=== PATIENT | female | born 1965 | race African-American/Black ===

== ENCOUNTER 2017-09-14 17:33 | Observation (INO) | payer OTHER ==
[2017-09-14] MEDS ORDERED: ONDANSETRON 4 MG/2 ML VIAL IVP STA ×2 (18:04→19:59)
[2017-09-14] MEDS ORDERED: KETOROLAC 30 MG/ML 1 ML VIAL IVP STA (18:04)
--- NOTE | 2017-09-14 18:06 | ED ---
General Adult HPI - General Chief complaint: Chest Pain Stated complaint: Chest Pain Time Seen by Provider: 09/14/17 17:35 Source: patient, EMS, RN notes reviewed, old records reviewed Mode of arrival: EMS Limitations: physical limitation - History of Present Illness Initial comments: 52-year-old female presenting from rehab with left-sided chest pain. Patient is rehab for alcoholism. She has no known history coronary artery disease. No history of DVT or PE. She presented with sharp left-sided chest pain. This was associated with some nausea. No abdominal pain. No central chest pain or pressure. Patient denied pleuritic pain. She was brought in by EMS for evaluation of chest pain. Denies lower tremor swelling or calf tenderness. Patient has past medical history of hypertension. No other known medical problems. - Related Data Home Medications Medication Instructions Recorded Confirmed Acetaminophen Tab [Tylenol Tab] 650 mg PO Q4H PRN MDD 6 tabs 09/14/17 09/14/17 Alamag 1 tab PO Q4H PRN 09/14/17 09/14/17 Brimonidine Tartrate [Alphagan P 1 drops LEFT EYE TID@0900,1500,199909/14/17 0.2% Ophth Soln] Dorzolamide 2% [Trusopt 2%] 1 drops LEFT EYE TID@0900,1500,199909/14/17 Ergocalciferol (Vitamin D2) 50,000 unit PO TH@0600 09/14/17 09/14/17 [Vitamin D2] Ibuprofen [Motrin] 600 mg PO Q6H PRN 09/14/17 09/14/17 LORazepam [Ativan] 1 - 2 mg PO Q4-6H PRN 09/14/17 09/14/17 Multivitamins, Thera [Multivitamin 1 tab PO DAILY 09/14/17 09/14/17 (formulary)] Nitroglycerin Sl Tabs [Nitrostat] 0.4 mg SUBLINGUAL Q5M PRN 09/14/17 09/14/17 Ondansetron [Zofran ODT] 8 mg PO Q6H PRN 09/14/17 09/14/17 Ondansetron [Zofran] 4 mg IM Q6H PRN 09/14/17 09/14/17 Thiamine [Vitamin B-1] 100 mg PO DAILY 09/14/17 09/14/17 Timolol 0.5% Ophth Soln [Timoptic 1 drop LEFT EYE BID@0600,199909/14/17 0.5% Ophth Soln] Triamterene-Hctz 37.5-25Mg 1 tab PO DAILY@0600 09/14/17 09/14/17 [Maxzide 37.5-25] Trimethobenzamide [Tigan] 300 mg PO Q6H PRN 09/14/17 09/14/17 traZODone HCL 50 - 150 mg PO HS 09/14/17 09/14/17 Allergies Allergy/AdvReac Type Severity Reaction Status Date / Time No Known Allergies Allergy Verified 09/14/17 18:54 Review of Systems ROS Statement: Those systems with pertinent positive or pertinent negative responses have been documented in the HPI. ROS Other: All systems not noted in ROS Statement are negative. 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 Absent: tenderness, meningismus Respiratory exam: Present: normal lung sounds bilaterally. Absent: respiratory distress, wheezes Cardiovascular Exam: Present: regular rate, normal rhythm GI/Abdominal exam: Present: soft. Absent: distended, tenderness Extremities exam: Present: normal inspection, normal capillary refill. Absent: pedal edema Neurological exam: Present: alert, oriented X3 Psychiatric exam: Present: normal affect, normal mood Skin exam: Present: warm, dry, intact. Absent: cyanosis, diaphoretic Course Vital Signs 09/14/17 09/14/17 17:49 18:32 Temperature 98.6 F Pulse Rate 74 62 Respiratory 16 14 Rate Blood Pressure 108/72 112/74 O2 Sat by Pulse 100 100 Oximetry EKG Findings - EKG Comments: EKG Findings:: EKG shows normal sinus rhythm, ventricular rate 60, FL interval 156, QRS duration 84, QTC 444, there is T-wave inversion in the lateral precordial leads V5 and V6. No ST segment elevation. No old EKG for comparison Medical Decision Making - Medical Decision Making 52-year-old female presenting for evaluation of left-sided chest pain. Pain is atypical for coronary artery disease however patient does have several risk factors. EKG shows T-wave inversion in V5 and V6 with no old for comparison. CBC reveals white blood cell count 6.9 which is normal, stable hemoglobin 15.3, d-dimer is negative. Initial troponin negative, chest x-ray shows no acute findings. Patient will be placed in observation for serial cardiac enzymes and cardiology evaluation. - Lab Data Result diagrams: 09/14/17 18:05 09/14/17 18:05 Lab Results 09/14/17 09/14/17 09/14/17 Range/Units 18:05 18:05 18:05 WBC 6.9 (3.8-10.6) k/uL RBC 4.90 (3.80-5.40) m/uL Hgb 15.3 (11.4-16.0) gm/dL Hct 45.0 (34.0-46.0) % MCV 91.8 (80.0-100.0) fL MCH 31.2 (25.0-35.0) pg MCHC 33.9 (31.0-37.0) g/dL RDW 14.8 (11.5-15.5) % Plt Count 171 (150-450) k/uL Neutrophils % 67 % Lymphocytes % 17 % Monocytes % 9 % Eosinophils % 3 % Basophils % 1 % Neutrophils # 4.6 (1.3-7.7) k/uL Lymphocytes # 1.2 (1.0-4.8) k/uL Monocytes # 0.6 (0-1.0) k/uL Eosinophils # 0.2 (0-0.7) k/uL Basophils # 0.0 (0-0.2) k/uL PT (9.0-12.0) sec INR (<1.2) APTT (22.0-30.0) sec D-Dimer (<0.60) mg/L FEU Sodium 142 (137-145) mmol/L Potassium 3.5 (3.5-5.1) mmol/L Chloride 108 H (98-107) mmol/L Carbon Dioxide 25 (22-30) mmol/L Anion Gap 9 mmol/L BUN 13 (7-17) mg/dL Creatinine 0.82 (0.52-1.04) mg/dL Est GFR (MDRD) Af Amer >60 (>60 ml/min/1.73 sqM) Est GFR (MDRD) Non-Af >60 (>60 ml/min/1.73 sqM) Glucose 102 H (74-99) mg/dL Calcium 10.2 (8.4-10.2) mg/dL Magnesium 2.2 (1.6-2.3) mg/dL Total Bilirubin 1.1 (0.2-1.3) mg/dL AST 47 H (14-36) U/L ALT 80 H (9-52) U/L Alkaline Phosphatase 72 (38-126) U/L Total Creatine Kinase 40 (30-135) U/L CK-MB (CK-2) 0.4 (0.0-2.4) ng/mL CK-MB (CK-2) Rel Index 1.0 Troponin I <0.012 (0.000-0.034) ng/mL NT-Pro-B Natriuret Pep pg/mL Total Protein 7.4 (6.3-8.2) g/dL Albumin 4.4 (3.5-5.0) g/dL Lipase 42 (23-300) U/L 09/14/17 09/14/17 Range/Units 18:05 18:05 WBC (3.8-10.6) k/uL RBC (3.80-5.40) m/uL Hgb (11.4-16.0) gm/dL Hct (34.0-46.0) % MCV (80.0-100.0) fL MCH (25.0-35.0) pg MCHC (31.0-37.0) g/dL RDW (11.5-15.5) % Plt Count (150-450) k/uL Neutrophils % % Lymphocytes % % Monocytes % % Eosinophils % % Basophils % % Neutrophils # (1.3-7.7) k/uL Lymphocytes # (1.0-4.8) k/uL Monocytes # (0-1.0) k/uL Eosinophils # (0-0.7) k/uL Basophils # (0-0.2) k/uL PT 9.7 (9.0-12.0) sec INR 1.0 (<1.2) APTT 22.4 (22.0-30.0) sec D-Dimer 0.53 (<0.60) mg/L FEU Sodium (137-145) mmol/L Potassium (3.5-5.1) mmol/L Chloride (98-107) mmol/L Carbon Dioxide (22-30) mmol/L Anion Gap mmol/L BUN (7-17) mg/dL Creatinine (0.52-1.04) mg/dL Est GFR (MDRD) Af Amer (>60 ml/min/1.73 sqM) Est GFR (MDRD) Non-Af (>60 ml/min/1.73 sqM) Glucose (74-99) mg/dL Calcium (8.4-10.2) mg/dL Magnesium (1.6-2.3) mg/dL Total Bilirubin (0.2-1.3) mg/dL AST (14-36) U/L ALT (9-52) U/L Alkaline Phosphatase (38-126) U/L Total Creatine Kinase (30-135) U/L CK-MB (CK-2) (0.0-2.4) ng/mL CK-MB (CK-2) Rel Index Troponin I (0.000-0.034) ng/mL NT-Pro-B Natriuret Pep 102 pg/mL Total Protein (6.3-8.2) g/dL Albumin (3.5-5.0) g/dL Lipase (23-300) U/L Disposition Clinical Impression: Chest pain Disposition: ADMITTED IP TO THIS [facility] Condition: Stable Referrals: Nonstaff,Physician [Primary Care Provider] - 1-2 days Decision to Admit Reason: Admit from EC Decision Date: 09/14/17 Decision Time: 20:02
[2017-09-14 18:21] LABS: Basophils % (A) 1 %; Eosinophils # (A) 0.2 k/uL (0-0.7); Eosinophils % (A) 3 %; HGB 15.3 gm/dL (11.4-16.0); Lymphocytes # (A) 1.2 k/uL (1.0-4.8); Lymphocytes % (A) 17 %; MCH 31.2 pg (25.0-35.0); MCHC 33.9 g/dL (31.0-37.0); MCV 91.8 fL (80.0-100.0); Mean Platelet Volume 10.3; Monocytes # (A) 0.6 k/uL (0-1.0); Monocytes % (A) 9 %; Neutrophils # (A) 4.6 k/uL (1.3-7.7); Neutrophils % (A) 67 %; Platelet Count 171 k/uL (150-450); RDW 14.8 % (11.5-15.5); WBC 6.9 k/uL (3.8-10.6)
[2017-09-14 18:25] LABS: ALT 80 U/L (9-52); AST 47 U/L (14-36); Albumin 4.4 g/dL (3.5-5.0); Alkaline Phosphatase 72 U/L (38-126); Anion Gap 9 mmol/L; Blood Urea Nitrogen 13 mg/dL (7-17); Calcium 10.2 mg/dL (8.4-10.2); Carbon Dioxide 25 mmol/L (22-30); Chloride 108 mmol/L (98-107); Glucose 102 mg/dL (74-99); Lipase 42 U/L (23-300); Magnesium 2.2 mg/dL (1.6-2.3); Potassium 3.5 mmol/L (3.5-5.1); Sodium 142 mmol/L (137-145); Total Bilirubin 1.1 mg/dL (0.2-1.3); Total Protein 7.4 g/dL (6.3-8.2)
[2017-09-14 18:26] LABS: D-Dimer 0.53 mg/L FEU (<0.60)
[2017-09-14 18:32] LABS: Partial Thromboplastin Time 22.4 sec (22.0-30.0); Prothrombin Time 9.7 sec (9.0-12.0)
[2017-09-14 18:36] LABS: Creatine Kinase 40 U/L (30-135)
[2017-09-14 18:49] LABS: Creatine Kinase MB 0.4 ng/mL (0.0-2.4); Troponin I <0.012 ng/mL (0.000-0.034)
--- NOTE | 2017-09-14 19:43 | XR ---
EXAMINATION TYPE: XR chest 2V DATE OF EXAM: 09/14/2017 COMPARISON: NONE HISTORY: Chest pain TECHNIQUE: Frontal and lateral views of the chest are obtained. FINDINGS: Heart and mediastinum are normal. Lungs are clear of consolidation. There is right nipple shadow. Bony thorax is intact. There are chest leads. There is old left clavicle healed fracture. IMPRESSION: No active cardiopulmonary disease. Normal heart.
[2017-09-14] MEDS ORDERED: ASPIRIN 325 MG TAB PO STA (20:00)
[2017-09-14] MEDS ORDERED: HYDROcodone/APAP 5-325MG 1 EACH TAB PO STA (20:00)
[2017-09-14] MEDS ORDERED: NALOXONE 0.4 MG/ML 1 ML VIAL IV PRN (20:02)
[2017-09-14] MEDS ORDERED: ACETAMINOPHEN TAB 325 MG TAB PO PRN (20:02)
[2017-09-14] MEDS ORDERED: IBUPROFEN 400 MG TAB PO PRN (20:02)
[2017-09-14] MEDS ORDERED: TRIMETHOBENZAMIDE 300 MG CAP PO PRN (21:42)
[2017-09-14] MEDS ORDERED: THIAMINE 100 MG/ML 2 ML VIAL IM STA (21:58)
[2017-09-14] MEDS ORDERED: LORazepam 2 MG/ML INJ IV PRN ×2 (21:58)
[2017-09-14] MEDS ORDERED: traZODone HCL 50 MG TAB PO SCH (22:00)
[2017-09-14] MEDS: LORazepam 2 MG/ML INJ IV PRN (22:12)
[2017-09-14] MEDS: THIAMINE 100 MG TAB PO SCH (22:13)
[2017-09-14 22:40] VITALS: BMI 22.2
[2017-09-15 00:21] VITALS: RESP 18
[2017-09-15 01:19] LABS: Creatine Kinase 33 U/L (30-135)
[2017-09-15 01:31] LABS: Creatine Kinase MB 0.4 ng/mL (0.0-2.4); Troponin I <0.012 ng/mL (0.000-0.034)
[2017-09-15] MEDS: HYDROcodone/APAP 5-325MG 1 EACH TAB PO PRN ×2 (04:06→08:45)
[2017-09-15] MEDS: BRIMONIDINE TARTRATE 0.2% DROPS 5 ML BTL LEFT EYE SCH ×2 (04:07→11:47)
[2017-09-15] MEDS: TIMOLOL 0.5% OPHTH DROPS 5 ML BTL LEFT EYE SCH ×2 (04:07→11:47)
[2017-09-15] MEDS: ONDANSETRON 4 MG/2 ML VIAL IVP PRN ×2 (04:07→12:02)
[2017-09-15] MEDS ORDERED: TRIAMTERENE-HCTZ 37.5-25MG 1 EACH TAB PO SCH (06:00)
[2017-09-15 07:41] LABS: Creatine Kinase 32 U/L (30-135)
[2017-09-15 07:53] LABS: Creatine Kinase MB 0.2 ng/mL (0.0-2.4); Troponin I <0.012 ng/mL (0.000-0.034)
[2017-09-15] MEDS ORDERED: THIAMINE 100 MG TAB PO SCH (09:00)
[2017-09-15] MEDS ORDERED: MULTIVITAMINS, THERA 1 EACH TAB PO SCH (09:00)
[2017-09-15] MEDS ORDERED: DORZOLAMIDE HCL 2% DROPS 10 ML BTL LEFT EYE SCH (09:00)
[2017-09-15] MEDS ORDERED: DOBUTamine DRIP for NUC MED 250 MG in DEXTROSE/WATER 1 250ML.BAG IV ONE (10:46)
--- NOTE | 2017-09-15 11:14 | ECHOF ---
Referral Reason:chest pain MEASUREMENTS -------- HEIGHT: 165.1 cm WEIGHT: 62.6 kg BP: RVIDd: 2.4 cm (< 3.3) IVSd: 1.1 cm (0.6 - 1.1) LVIDd: 4.0 cm (3.9 - 5.3) LVPWd: 1.3 cm (0.6 - 1.1) IVSs: 1.2 cm LVIDs: 2.9 cm LVPWs: 1.3 cm LA Diam: 2.7 cm (2.7 - 3.8) Ao Diam: 2.5 cm (2.0 - 3.7) AV Cusp: 1.6 cm (1.5 - 2.6) LA Diam: 2.9 cm (2.7 - 3.8) MV EXCURSION: 21.258 mm (> 18.000) MV EF SLOPE: 73 mm/s (70 - 150) EPSS: 0.2 cm MV E Kit: 0.66 m/s MV DecT: 193 ms MV A Kit: 0.60 m/s MV E/A Ratio: 1.11 RAP: 5.00 mmHg RVSP: 21.55 mmHg FINDINGS -------- Sinus rhythm. This was a technically good study. LV size, wall thickness and systolic function are normal, with an EF greater than 55%. The right ventricle is normal in size. The left atrial size is normal. The right atrial size is normal. The aortic valve is trileaflet, and appears structurally normal. No aortic stenosis or regurgitation. Mild mitral regurgitation is present. Mild tricuspid regurgitation present. There is no evidence of pulmonary hypertension. The right v entricular systolic pressure, as measured by Doppler, is 21.55mmHg. Trace/mild (physiologic) pulmonic regurgitation. The aortic root size is normal. There is no pericardial effusion. CONCLUSIONS -------- 1. LV size, wall thickness and systolic function are normal, with an EF greater than 55%. 2. The aortic valve is trileaflet, and appears structurally normal. No aortic stenosis or regurgitati on. 3. Mild mitral regurgitation is present. 4. Mild tricuspid regurgitation present. 5. There is no evidence of pulmonary hypertension. 6. The right ventricular systolic pressure, as measured by Doppler, is 21.55mmHg. 7. Trace/mild (physiologic) pulmonic regurgitation. 8. The aortic root size is normal. 9. There is no pericardial effusion. HARDWARE MANAGER: Gem Grewal RDCS
[2017-09-15 11:57] VITALS: BP 115/84; PULSE 73; TEMP 98.1
[2017-09-15] MEDS: LORazepam 2 MG/ML INJ IV PRN (12:01)
--- NOTE | 2017-09-15 12:06 | ECHOS ---
STRESS ECHOCARDIOGRAM DOBUTAMINE ECHO DATE OF SERVICE: 09/15/2017 INDICATIONS: Chest pain. MEDICATIONS: BASELINE HEART RATE: 58 BASELINE BLOOD PRESSURE: 105/61 MAXIMUM HEART RATE: 130 MAXIMUM BLOOD PRESSURE: 187/60 85% MPHR: 141 100% MPHR: 160 METS: MAXIMUM STAGE REACHED: TOTAL EXERCISE TIME: CLINICAL INFORMATION: Baseline EKG shows sinus bradycardia, normal axis, normal intervals. The patient was given intravenous dobutamine over a period of 12 minutes as per protocol, achieving a maximum heart rate of 130 beats per minute, which is around 81% of predicted maximal heart rate without chest pain or diagnostic ST-segment depression. Baseline echo images show a normal left ventricular size, wall motion and systolic function. At peak dobutamine infusion, there were no dobutamine induced wall motion abnormalities. CONCLUSION: No evidence of stress-induced ischemia at 81% of predicted maximal heart rate. MMJUANL / IJN: [id number] /
[2017-09-15] MEDS: THIAMINE 100 MG TAB PO SCH (12:31)
--- NOTE | 2017-09-15 12:41 | P.CRDCN ---
History of Present Illness Consult date: 09/15/17 Consult reason: chest pain History of present illness: Mrs. Pike is a pleasant 52-year-old -[place] female with past medical history significant for hypertension, liver disease, cataracts, glaucoma and chronic alcohol and tobacco abuse. She is currently undergoing alcohol rehabilitation at [place]. Her last drink was Monday. Yesterday after eating lunch she developed sharp chest pain the left precordial area associated with nausea and vomiting x1. She was given motrin and it resolved but subsequently the pain came back. Denies associated sob, dizziness, palpitations or diaphoresis. States she had a similar episode a few months ago and had a workup done with a senior radiation therapist but unsure where she was or the name of the hospital. The pain is not reproducible, not worse with deep breath and she is currently pain free. EKG on arrival sinus mechanism with T-wave inversions in lateral leads. There is no old EKG for comparison. Chest x-ray is negative for acute cardiopulmonary process. Laboratory data has been reviewed, cardiac enzymes negative 3, d-dimer negative , hemoglobin 15.3, platelets 171, potassium 3.5, magnesium 2.2, creatinine 0.82. Liver enzymes are elevated. Current cardiac medications include Maxzide 37.5/25 mg daily. Review of Systems CONSTITUTIONAL: Denies fever. Denies chills. EYES: Denies blurred vision. Denies vision changes. Denies eye pain. 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 EARS, NOSE, MOUTH & THROAT: Denies headache. Denies sore throat. Denies ear pain. CARDIOVASCULAR: Denies chest pain. Denies shortness of breath. Denies orthopnea. Denies PND. Denies palpitations. RESPIRATORY: Denies cough. GASTROINTESTINAL: Denies abdominal pain. Denies diarrhea. Denies constipation. Denies nausea. Denies vomiting. MUSCULOSKELETAL: Denies myalgias. INTEGUMENTARY: Denies pruitis. Denies rash. NEUROLOGIC: Denies numbness. Denies tingling. Denies weakness. PSYCHIATRIC: Denies anxiety. Denies depression. ENDOCRINE: Denies fatigue. Denies weight change. Denies polydipsia. Denies polyurina. GENITOURINARY: Denies burning, hematuria or urgency with micturation. HEMATOLOGIC: Denies history of anemia. Denies bleeding. Past Medical History Past Medical History: Hypertension, Liver Disease, Renal Disease Additional Past Medical History / Comment(s): blind rt eye History of Any Multi-Drug Resistant Organisms: None Reported Past Surgical History: Cholecystectomy Past Anesthesia/Blood Transfusion Reactions: No Reported Reaction Past Psychological History: No Psychological Hx Reported Smoking Status: Current every day smoker Past Alcohol Use History: Abuse, Daily Past Drug Use History: None Reported Medications and Allergies Home Medications Medication Instructions Recorded Confirmed Type Acetaminophen Tab [Tylenol Tab] 650 mg PO Q4H PRN MDD 6 tabs 09/14/17 09/14/17 History Alamag 1 tab PO Q4H PRN 09/14/17 09/14/17 History Brimonidine Tartrate [Alphagan P 1 drops LEFT EYE TID@0900,1500,199909/14/17 History 0.2% Ophth Soln] Dorzolamide 2% [Trusopt 2%] 1 drops LEFT EYE TID@0900,1500,199909/14/17 History Ergocalciferol (Vitamin D2) 50,000 unit PO TH@0600 09/14/17 09/14/17 History [Vitamin D2] Ibuprofen [Motrin] 600 mg PO Q6H PRN 09/14/17 09/14/17 History LORazepam [Ativan] 1 - 2 mg PO Q4-6H PRN 09/14/17 09/14/17 History Multivitamins, Thera [Multivitamin 1 tab PO DAILY 09/14/17 09/14/17 History (formulary)] Nitroglycerin Sl Tabs [Nitrostat] 0.4 mg SUBLINGUAL Q5M PRN 09/14/17 09/14/17 History Ondansetron [Zofran ODT] 8 mg PO Q6H PRN 09/14/17 09/14/17 History Ondansetron [Zofran] 4 mg IM Q6H PRN 09/14/17 09/14/17 History Thiamine [Vitamin B-1] 100 mg PO DAILY 09/14/17 09/14/17 History Timolol 0.5% Ophth Soln [Timoptic 1 drop LEFT EYE BID@0600,199909/14/17 History 0.5% Ophth Soln] Triamterene-Hctz 37.5-25Mg 1 tab PO DAILY@0600 09/14/17 09/14/17 History [Maxzide 37.5-25] Trimethobenzamide [Tigan] 300 mg PO Q6H PRN 09/14/17 09/14/17 History traZODone HCL 50 - 150 mg PO HS 09/14/17 09/14/17 History Allergies Allergy/AdvReac Type Severity Reaction Status Date / Time No Known Allergies Allergy Verified 09/14/17 18:54 Physical Exam Vitals: Vital Signs Temp Pulse Pulse Resp BP BP Pulse Ox 09/15/17 04:06 98.1 F 67 18 116/81 99 09/15/17 04:00 67 18 09/15/17 00:30 106/71 09/15/17 00:20 97.4 F L 63 18 86/58 98 09/14/17 22:30 16 09/14/17 21:36 97.9 F 61 16 111/67 97 09/14/17 21:00 90 18 109/77 97 09/14/17 20:34 98.3 F 79 18 109/77 97 09/14/17 19:28 62 123/80 99 09/14/17 18:32 62 14 112/74 100 09/14/17 17:49 98.6 F 74 16 108/72 100 Intake and Output 09/14/17 09/15/17 09/15/17 22:59 06:59 14:59 Other: # Voids 1 Weight 62.596 kg Blood pressure 116/80 167 afebrile GENERAL: This is a 52-year-old -[place] female in no apparent distress at the time of my examination. HEENT: Head is atraumatic, normocephalic. Pupils are cloudy secondary to cataracts. Sclerae anicteric. Conjunctivae are clear. Mucous membranes of the mouth are moist. Neck is supple. There is no jugular venous distention. No carotid bruit is heard. LUNGS: Clear to auscultation no wheezes, rales or rhonchi. No chest wall tenderness is noted on palpation or with deep breathing. HEART: Regular rate and rhythm without murmurs, rubs or gallops. S1 and S2 heard. ABDOMEN: Soft, nontender. Bowel sounds are heard. No organomegaly noted. EXTREMITIES: No evidence of peripheral edema and no calf tenderness noted. VASCULAR: Radial and dorsalis pedis pulses palpated, no evidence of clubbing. NEUROLOGIC: Patient is awake, alert and oriented x3. Results 09/14/17 18:05 09/14/17 18:05 Cardiac Enzymes 09/14/17 09/14/17 09/15/17 Range/Units 18:05 18:05 00:42 AST 47 H (14-36) U/L CK-MB (CK-2) 0.4 0.4 (0.0-2.4) ng/mL Troponin I <0.012 <0.012 (0.000-0.034) ng/mL 09/15/17 Range/Units 06:26 AST (14-36) U/L CK-MB (CK-2) 0.2 (0.0-2.4) ng/mL Troponin I <0.012 (0.000-0.034) ng/mL Coagulation 09/14/17 Range/Units 18:05 PT 9.7 (9.0-12.0) sec APTT 22.4 (22.0-30.0) sec CBC 09/14/17 Range/Units 18:05 WBC 6.9 (3.8-10.6) k/uL RBC 4.90 (3.80-5.40) m/uL Hgb 15.3 (11.4-16.0) gm/dL Hct 45.0 (34.0-46.0) % Plt Count 171 (150-450) k/uL Comprehensive Metabolic Panel 09/14/17 Range/Units 18:05 Sodium 142 (137-145) mmol/L Potassium 3.5 (3.5-5.1) mmol/L Chloride 108 H (98-107) mmol/L Carbon Dioxide 25 (22-30) mmol/L BUN 13 (7-17) mg/dL Creatinine 0.82 (0.52-1.04) mg/dL Glucose 102 H (74-99) mg/dL Calcium 10.2 (8.4-10.2) mg/dL AST 47 H (14-36) U/L ALT 80 H (9-52) U/L Alkaline Phosphatase 72 (38-126) U/L Total Protein 7.4 (6.3-8.2) g/dL Albumin 4.4 (3.5-5.0) g/dL Current Medications Generic Name Dose Route Start Last Admin Trade Name Freq PRN Reason Stop Dose Admin Acetaminophen 650 mg 09/14/17 20:02 Tylenol Tab PO Q6HR PRN Mild Pain or Fever > 100.5 Hydrocodone Bitart/Acetaminophen 1 each 09/14/17 20:02 09/15/17 04:06 [place] 5-325 PO 1 each Q4HR PRN Administration Moderate Pain Brimonidine Tartrate 1 drops 09/15/17 09:00 09/15/17 04:07 Alphagan P 0.2% Ophth Soln LEFT EYE 1 drops TID@0900,1500,2000 [facility] Administration Dorzolamide HCl 1 drops 09/15/17 09:00 Trusopt LEFT EYE TID@0900,1500,2000 [facility] Ergocalciferol 50,000 unit 09/21/17 06:00 Vitamin D2 PO TH@0600 [facility] Ibuprofen 400 mg 09/14/17 20:02 Motrin PO Q6HR PRN Mild Pain or Fever > 100.5 Lorazepam 1 mg 09/14/17 21:58 09/14/17 22:12 Ativan IV 1 mg Q2HR PRN Administration CIWA 8 or 9 Lorazepam 1 mg 09/14/17 21:58 Ativan IV Q1HR PRN CIWA 10 to 15 Lorazepam 2 mg 09/14/17 21:58 Ativan IV 09/16/17 21:59 Q10M PRN CIWA 16 or higher Multivitamins 1 each 09/15/17 09:00 Theragran PO DAILY [facility] Naloxone HCl 0.2 mg 09/14/17 20:02 Narcan IV Q2M PRN Opioid Reversal Ondansetron HCl 4 mg 09/14/17 20:02 09/15/17 04:07 Zofran IVP 4 mg Q8HR PRN Administration Nausea And Vomiting Thiamine HCl 100 mg 09/15/17 09:00 Vitamin B-1 PO DAILY [facility] Thiamine HCl 100 mg 09/14/17 17:00 09/14/17 22:13 Vitamin B-1 PO Not Given BID@1200,1700 [facility] Timolol Maleate 1 drops 09/15/17 06:00 09/15/17 04:07 Timoptic LEFT EYE 1 drops BID@0600,2000 [facility] Administration Trazodone HCl 50 mg 09/14/17 22:00 09/14/17 22:12 Desyrel PO 50 mg HS ARTURO Administration Triamterene/HCTZ 1 each 09/15/17 06:00 09/15/17 06:27 Maxzide-25 PO Not Given DAILY@0600 [facility] Trimethobenzamide HCl 300 mg 09/14/17 21:42 Tigan PO Q6H PRN Nausea Intake and Output 09/14/17 09/15/17 09/15/17 22:59 06:59 14:59 Other: # Voids 1 Weight 62.596 kg 09/14/17 18:05 09/14/17 18:05 Assessment and Plan Assessment: ASSESSMENT 1. Precordial chest pain 2. Essential hypertension 3. Chronic tobacco use 4. Daily alcohol intake, currently in rehabilitation last request Monday no signs or symptoms of withdrawal. PLAN Obtain 2-D echocardiogram Doppler study to assess cardiac structure and function. Performed dobutamine stress echocardiogram to evaluate for exercise/stress- induced ischemia. Continue Maxzide as previously prescribed. This above testing is negative she is stable from a cardiac perspective to go back to [facility] for ongoing rehabilitation. Placed on modifications discussed in the form of tobacco cessation. The above impression and plan of care have been discussed and directed by the signing physician. Rosanne Castillo, nurse practitioner, acting as scribe for signing physician.
[2017-09-15] MEDS ORDERED: MAG HYDROX/AL HYDROX/SIMETH 30 ML CUP PO PRN (12:44)
[2017-09-15] MEDS ORDERED: PANTOPRAZOLE 40 MG TABLET PO SCH (12:45)
--- NOTE | 2017-09-15 13:41 | P.HPIM ---
History of Present Illness H&P Date: 09/15/17 Chief Complaint: Chest pain Patient is a 52-year-old female with known history of hypertension , alcohol abuse and a legally blind who is currently undergoing rehabilitation at [facility] came to the hospital with complaints of sharp chest pain mainly in the left precordial area after having lunch yesterday. Since then patient has been having constant pain associated with nausea and 1 episode of vomiting. Otherwise patient denied any shortness of breath. No diaphoresis. No radiation. No headache or dizziness. Patient does take occasional Motrin for pain. No history of GERD.. Otherwise no fever. No chills. No cough or sputum production. No recent illnesses or sick contacts EKG showed sinus rhythm with T-wave inversions in the lateral leads Chest x-ray showed no acute cardio pulmonary process D-dimer negative Liver enzymes slightly elevated. Review of Systems Constitutional: Patient denies any fever or chills . No generalized weakness or weight loss. Abdomen: Patient does have nausea. One episode of vomiting. No abdominal pain. No diarrhea. No constipation. Cardiovascular: Chest pain. No short of breath no palpitations. Respiratory: patient denied any cough is from production. No shortness of breath Neurologic: Patient denied any numbness or tingling headache. Musculoskeletal: Patient denies any complaints of joint swelling or deformity. Skin: Negative Psychiatric: Negative Endocrine: No heat or cold intolerance. No recent weight gain. Genitourinary: No dysuria or hematuria. All other 14 point ROS negative except the above Past Medical History Past Medical History: Hypertension, Liver Disease, Renal Disease Additional Past Medical History / Comment(s): blind rt eye History of Any Multi-Drug Resistant Organisms: None Reported Past Surgical History: Cholecystectomy Past Anesthesia/Blood Transfusion Reactions: No Reported Reaction Past Psychological History: No Psychological Hx Reported Smoking Status: Current every day smoker Past Alcohol Use History: Abuse, Daily Past Drug Use History: None Reported Medications and Allergies Home Medications Medication Instructions Recorded Confirmed Type Acetaminophen Tab [Tylenol] 650 mg PO Q4H PRN MDD 6 tabs 09/14/17 09/14/17 History Alamag 1 tab PO Q4H PRN 09/14/17 09/14/17 History Brimonidine Tartrate [Alphagan P 1 drops LEFT EYE TID@0900,1500,2000 09/14/17 History 0.2% Ophth Soln] Dorzolamide 2% [Trusopt 2%] 1 drops LEFT EYE TID@0900,1500,199909/14/17 History Ergocalciferol (Vitamin D2) 50,000 unit PO TH@0600 09/14/17 09/14/17 History [Vitamin D2] LORazepam [Ativan] 1 - 2 mg PO Q4-6H PRN 09/14/17 09/14/17 History Multivitamins, Thera [Multivitamin 1 tab PO DAILY 09/14/17 09/14/17 History (formulary)] Nitroglycerin Sl Tabs [Nitrostat] 0.4 mg SUBLINGUAL Q5M PRN 09/14/17 09/14/17 History Ondansetron [Zofran ODT] 8 mg PO Q6H PRN 09/14/17 09/14/17 History Ondansetron [Zofran] 4 mg IM Q6H PRN 09/14/17 09/14/17 History Thiamine [Vitamin B-1] 100 mg PO DAILY 09/14/17 09/14/17 History Timolol 0.5% Ophth Soln [Timoptic 1 drop LEFT EYE BID@0600,199909/14/17 History 0.5% Ophth Soln] Triamterene-Hctz 37.5-25Mg 1 tab PO DAILY@0600 09/14/17 09/14/17 History [Maxzide 37.5-25] Trimethobenzamide [Tigan] 300 mg PO Q6H PRN 09/14/17 09/14/17 History traZODone HCL 50 - 150 mg PO HS 09/14/17 09/14/17 History Pantoprazole [Protonix] 40 mg PO AC-BRKFST #42 tablet. 09/15/17 Rx Allergies Allergy/AdvReac Type Severity Reaction Status Date / Time No Known Allergies Allergy Verified 09/14/17 18:54 Physical Exam Vitals: Vital Signs Temp Pulse Pulse Resp BP BP Pulse Ox 09/15/17 08:00 98.7 F 62 14 130/83 100 09/15/17 04:06 98.1 F 67 18 116/81 99 09/15/17 04:00 67 18 09/15/17 00:30 106/71 09/15/17 00:20 97.4 F L 63 18 86/58 98 09/14/17 22:30 16 09/14/17 21:36 97.9 F 61 16 111/67 97 09/14/17 21:00 90 18 109/77 97 09/14/17 20:34 98.3 F 79 18 109/77 97 09/14/17 19:28 62 123/80 99 09/14/17 18:32 62 14 112/74 100 09/14/17 17:49 98.6 F 74 16 108/72 100 Intake and Output 09/14/17 09/15/17 09/15/17 22:59 06:59 14:59 Other: Voiding Method Toilet # Voids 1 Weight 62.596 kg PHYSICAL EXAMINATION: Patient is lying in the bed comfortably, no acute distress, awake alert and oriented.. Is legally blind. HEENT: Normocephalic. Neck is supple. Pupils reactive. Nostrils clear. Oral cavity is moist. Ears reveal no drainage. Neck reveals no JVD, carotid bruits, or thyromegaly. CHEST EXAMINATION: Trachea is central. Symmetrical expansion. Lung up clear to auscultation and percussion. CARDIAC: Normal S1, S2 with no gallops. No murmurs ABDOMEN: Soft. Bowel sounds normal. No organomegaly. No abdominal bruits. Extremities: reveal no edema. No clubbing or cyanosis Neurologically awake, alert, oriented x3 with well-coordinated movements. No focal deficits noted Skin: No rash or skin lesions. Psychiatric: Cooperative. Nonsuicidal Musculoskeletal: No joint swelling or deformity. Normal range of motion. Results CBC & Chem 7: 09/14/17 18:05 09/14/17 18:05 Labs: Abnormal Lab Results - Last 24 Hours (Table) 09/14/17 Range/Units 18:05 Chloride 108 H (98-107) mmol/L Glucose 102 H (74-99) mg/dL AST 47 H (14-36) U/L ALT 80 H (9-52) U/L Thrombosis Risk Factor Assmnt - DVT/VTE Prophylaxis DVT/VTE Prophylaxis: Pharmacologic Prophylaxis ordered - Choose All That Apply Each Factor Represents 1 point: Age 41-60 years Thrombosis Risk Factor Assessment Total Risk Factor Score: 1 Thrombosis Risk Factor Assessment Level: Low Risk Assessment and Plan Assessment: Chest pain. We'll rule out ACS. Likely due to GERD-like symptoms Alcohol abuse. Currently in rehab at [facility]. the last drink on Monday. Hypertension Nicotine addiction Elevated liver enzymes with possible alcoholic hepatitis Legally blind Plan: Patient be continued on telemetry monitoring. Cardiology has seen the patient and recommended dobutamine stress echocardiogram. Continue with home medications. Monitor for alcohol withdrawal symptoms. Continue with thiamine and multivitamins. Patient will be started on Prilosec and Maalox when necessary. Further recommendations based on the clinical course. Alcohol abuse and smoking sedation has been counseled extensively Time with Patient: Greater than 30
--- NOTE | 2017-09-15 13:45 | P.DS ---
Providers Date of admission: 09/14/17 20:02 Expected date of discharge: 09/15/17 Attending physician: Blanca Benito Consults: 09/14/17 20:03 Consult Physician Urgent Consulting Provider: Colby Zapien Consult Reason/Comments: Chest Pain Do you want consulting provider notified?: Yes, Notify in am Primary care physician: Physician Nonstaff Hospital Course: Discharge diagnosis Chest pain. ruleed out ACS. Negative O due to mental status echo. Likely due to GERD-like symptoms versus alcoholic gastritis Alcohol abuse. Currently in rehab at [facility]. the last drink on Monday. Hypertension Nicotine addiction Elevated liver enzymes with possible alcoholic hepatitis Legally blind Hospital course Patient is a 52-year-old female with known history of hypertension , alcohol abuse and a legally blind who is currently undergoing rehabilitation at [facility] came to the hospital with complaints of sharp chest pain mainly in the left precordial area after having lunch yesterday. Since then patient has been having constant pain associated with nausea and 1 episode of vomiting. Otherwise patient denied any shortness of breath. No diaphoresis. No radiation. No headache or dizziness. Patient does take occasional Motrin for pain. No history of GERD.. Otherwise no fever. No chills. No cough or sputum production. No recent illnesses or sick contacts EKG showed sinus rhythm with T-wave inversions in the lateral leads Chest x-ray showed no acute cardio pulmonary process D-dimer negative Liver enzymes slightly elevated. Patient was continued on telemetry monitoring. Cardiology has seen the patient and recommended dobutamine stress echocardiogram. Continued with home medications. Monitored for alcohol withdrawal symptoms. Continue with thiamine and multivitamins. Patient will be started on Prilosec and Maalox when necessary. Further recommendations based on the clinical course. Alcohol abuse and smoking sedation has been counseled extensively Due to mistrust chest showed no evidence of stress-induced ischemia at 81% of predicted maximal heart rate Currently patient is improved and patient is stable to be discharged home. Discharge physical examination was done Patient Condition at Discharge: Stable Plan - Discharge Summary New Discharge Prescriptions: New Pantoprazole [Protonix] 40 mg PO AC-BRKFST #42 tablet. Continue Alamag 1 tab PO Q4H PRN PRN Reason: stomach traZODone HCL 50 - 150 mg PO HS Acetaminophen Tab [Tylenol] 650 mg PO Q4H PRN MDD 6 tabs PRN Reason: Pain Trimethobenzamide [Tigan] 300 mg PO Q6H PRN PRN Reason: Nausea Ondansetron [Zofran] 4 mg IM Q6H PRN PRN Reason: Nausea Ondansetron [Zofran ODT] 8 mg PO Q6H PRN PRN Reason: Nausea Nitroglycerin Sl Tabs [Nitrostat] 0.4 mg SUBLINGUAL Q5M PRN PRN Reason: Chest Pain Dorzolamide 2% [Trusopt 2%] 1 drops LEFT EYE TID@0900,1499,1999 Brimonidine Tartrate [Alphagan P 0.2% Ophth Soln] 1 drops LEFT EYE TID@0900, 1499,1999 Timolol 0.5% Ophth Soln [Timoptic 0.5% Ophth Soln] 1 drop LEFT EYE BID@0600, 1999 Triamterene-Hctz 37.5-25Mg [Maxzide 37.5-25] 1 tab PO DAILY@0600 Ergocalciferol (Vitamin D2) [Vitamin D2] 50,000 unit PO TH@0600 Thiamine [Vitamin B-1] 100 mg PO DAILY Multivitamins, Thera [Multivitamin (formulary)] 1 tab PO DAILY LORazepam [Ativan] 1 - 2 mg PO Q4-6H PRN PRN Reason: Anxiety Discontinued Ibuprofen [Motrin] 600 mg PO Q6H PRN PRN Reason: Pain Discharge Medication List Acetaminophen Tab [Tylenol] 650 mg PO Q4H PRN MDD 6 tabs 09/14/17 [History] Alamag 1 tab PO Q4H PRN 09/14/17 [History] Brimonidine Tartrate [Alphagan P 0.2% Ophth Soln] 1 drops LEFT EYE TID@0900,1500 ,199909/14/17 [History] Dorzolamide 2% [Trusopt 2%] 1 drops LEFT EYE TID@0900,1500,199909/14/17 [ History] Ergocalciferol (Vitamin D2) [Vitamin D2] 50,000 unit PO TH@0600 09/14/17 [ History] LORazepam [Ativan] 1 - 2 mg PO Q4-6H PRN 09/14/17 [History] Multivitamins, Thera [Multivitamin (formulary)] 1 tab PO DAILY 09/14/17 [History ] Nitroglycerin Sl Tabs [Nitrostat] 0.4 mg SUBLINGUAL Q5M PRN 09/14/17 [History] Ondansetron [Zofran ODT] 8 mg PO Q6H PRN 09/14/17 [History] Ondansetron [Zofran] 4 mg IM Q6H PRN 09/14/17 [History] Thiamine [Vitamin B-1] 100 mg PO DAILY 09/14/17 [History] Timolol 0.5% Ophth Soln [Timoptic 0.5% Ophth Soln] 1 drop LEFT EYE BID@0600, 199909/14/17 [History] Triamterene-Hctz 37.5-25Mg [Maxzide 37.5-25] 1 tab PO DAILY@0600 09/14/17 [ History] Trimethobenzamide [Tigan] 300 mg PO Q6H PRN 09/14/17 [History] traZODone HCL 50 - 150 mg PO HS 09/14/17 [History] Pantoprazole [Protonix] 40 mg PO DEXTERFSNeelam #42 tablet. 09/15/17 [Rx] Follow up Appointment(s)/Referral(s): Nonstaff,Physician [Primary Care Provider] - 1-2 days Discharge Disposition: HOME SELF-CARE
[2017-09-21] MEDS ORDERED: ERGOCALCIFEROL 50,000 UNIT CAP PO SCH (06:00)
== END 2017-09-15 15:18 | disposition home or self-care (01) ==
LOC: EC 17:33 → 3OBS 20:02
PROVIDERS: ADMIT Hospitalist; ATTEND Hospitalist
DX: R07.2 Precordial pain (principal); R11.2 Nausea with vomiting, unspecified; F10.20 Alcohol dependence, uncomplicated; I10 Essential (primary) hypertension; H54.8 Legal blindness, as defined in USA; H40.9 Unspecified glaucoma; H26.9 Unspecified cataract; F17.200 Nicotine dependence, unspecified, uncomplicated; K76.9 Liver disease, unspecified; N28.9 Disorder of kidney and ureter, unspecified; Z79.899 Other long term (current) drug therapy
CPT/HCPCS: 99285 ×2; 96374 ×2; 96375 ×3; 96376 ×3; 96372; 36415; 93005; 93017; 93306; 93350; 85379; 83880; 80053; 82550 ×2; 82553 ×2; 83690; 83735; 84484 ×2; 85025; 85610; 85730; 71046; G0378 ×2; J2060 ×2; J3411; J2405 ×2; J1885; J1250